=== PATIENT | male | born 1995 | race Caucasian/White ===

== ENCOUNTER 2016-09-04 02:38 | Emergency (ER) | payer SELFPAY ==
[2016-09-04 02:44] VITALS: BP 130/77
[2016-09-04] MEDS ORDERED: OXYCODONE-ACETAMINOPHEN 5-325 MG TABLET PO ONE (03:00)
[2016-09-04] MEDS ORDERED: LIDOCAINE 1% INJ (10 MG/ML) 10 ML MDV INJ ONE (03:06)
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
[2016-09-04] MEDS ORDERED: BACITRACIN ZINC OINTMENT 15 GM TP ONE (03:10)
[2016-09-04] MEDS ORDERED: LIDOCAINE 2% INJ (20 MG/ML) 20 ML MDV INJ ONE (03:11)
[2016-09-04] MEDS ORDERED: LIDOCAINE 1% INJ-PF (10 MG/ML) 30 ML SDV ONE (03:13)
== END 2016-09-04 04:10 | disposition home or self-care (01) ==
LOC: ER 02:38
PROC: 0HQLXZZ Repair Left Lower Leg Skin, External Approach (ICD-10-PCS; principal; 2016-09-04)
DX: S81.812A Laceration without foreign body, left lower leg, initial encounter (principal); R20.0 Anesthesia of skin; F12.90 Cannabis use, unspecified, uncomplicated; F17.200 Nicotine dependence, unspecified, uncomplicated; W26.1XXA Contact with sword or dagger, initial encounter
CPT/HCPCS: 99282; 12004; J3490

== ENCOUNTER 2016-09-08 15:38 | Emergency (ER) | payer SELFPAY ==
[2016-09-08 15:55] VITALS: BP 127/68
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
== END 2016-09-08 16:53 | disposition home or self-care (01) ==
LOC: ER 15:38
DX: S81.812D Laceration without foreign body, left lower leg, subsequent encounter (principal); W45.8XXD Other foreign body or object entering through skin, subsequent encounter; R20.0 Anesthesia of skin; F17.210 Nicotine dependence, cigarettes, uncomplicated; Z71.6 Tobacco abuse counseling
CPT/HCPCS: 99282

== ENCOUNTER 2016-09-16 19:13 | Emergency (ER) | payer SELFPAY ==
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
[2016-09-16 20:47] VITALS: BP 115/69
== END 2016-09-16 20:47 ==
LOC: ER 19:13
DX: S81.812D Laceration without foreign body, left lower leg, subsequent encounter (principal); W45.8XXD Other foreign body or object entering through skin, subsequent encounter; F17.210 Nicotine dependence, cigarettes, uncomplicated

== ENCOUNTER 2018-07-31 08:38 | Emergency (ER) | payer SELFPAY ==
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
[2018-07-31 12:22] VITALS: BP 128/76
== END 2018-07-31 12:20 | disposition home or self-care (01) ==
LOC: ER 08:38
DX: S50.812A Abrasion of left forearm, initial encounter (principal); S40.812A Abrasion of left upper arm, initial encounter; M79.602 Pain in left arm; V28.4XXA Motorcycle driver injured in noncollision transport accident in traffic accident, initial encounter; F17.200 Nicotine dependence, unspecified, uncomplicated; F12.10 Cannabis abuse, uncomplicated
CPT/HCPCS: 99283

== ENCOUNTER 2019-06-08 11:17 | Emergency (ER) | payer SELFPAY ==
[2019-06-08 11:22] VITALS: BP 131/83
[2019-06-08] MEDS ORDERED: IBUPROFEN 800 MG TABLET PO ONE (11:25)
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
[2019-06-08] MEDS ORDERED: HYDROCODONE/ACETAMINOPHEN 5-325 MG TABLET PO ONE (12:34)
== END 2019-06-08 12:44 | disposition home or self-care (01) ==
LOC: ER 11:17
DX: S62.339A Displaced fracture of neck of unspecified metacarpal bone, initial encounter for closed fracture (principal); M79.641 Pain in right hand; M79.644 Pain in right finger(s); W23.0XXA Caught, crushed, jammed, or pinched between moving objects, initial encounter; Y92.009 Unspecified place in unspecified non-institutional (private) residence as the place of occurrence of the external cause; F12.10 Cannabis abuse, uncomplicated; F17.210 Nicotine dependence, cigarettes, uncomplicated; Z71.6 Tobacco abuse counseling
CPT/HCPCS: 99283; 99406

== ENCOUNTER 2019-10-16 14:40 | Emergency (ER) | payer MEDICAID ==
--- NOTE | 2019-10-16 15:16 | ER Document Report ---
ED GI/ - General Chief Complaint: Pain With Urination Stated Complaint: PAINFUL URINATION Time Seen by Provider: 10/16/19 15:09 Primary Care Provider: ANKIT CHAWLA MD [NO LOCAL MD] - Follow up as needed Mode of Arrival: Ambulatory Information source: Patient Notes: 23-year-old male presented to ED for complaint of pain and stinging with urination. He also has a yellow discharge from his penis. He states he does have a history of bronchitis, tonsillectomy with adenoidectomy, and left knee repair for cartilage damage. He states he does smoke a pack a day occasionally drinks and uses marijuana. Patient is alert oriented respirations regular nonlabored speaking in full sentences. He states he has had this pain and burning for about over a week but is not getting better so he came to the emergency room. REVIEW OF SYSTEMS: CONSTITUTIONAL : Denies fever, chills, or sweats. Denies recent illness. CARDIOVASCULAR: Denies chest pain. RESPIRATORY: Denies cough, cold, or chest congestion. Denies shortness of breath, difficulty breathing, or wheezing. GASTROINTESTINAL: Denies abdominal pain. Denies nausea, vomiting, or diarrhea. Denies constipation. GENITOURINARY: Pain and stinging with urination and penile discharge MUSCULOSKELETAL: Denies neck or back pain or joint pain or swelling. ALL OTHER SYSTEMS REVIEWED AND NEGATIVE. PHYSICAL EXAMINATION: GENERAL: Well-appearing, well-nourished and in no acute distress. HEAD: Atraumatic, normocephalic. EYES: Pupils equal round and reactive to light, extraocular movements intact, sclera anicteric, conjunctiva are normal. ENT: Nares patent, oropharynx clear without exudates. Moist mucous membranes. NECK: Normal range of motion, supple without lymphadenopathy LUNGS: Breath sounds clear to auscultation bilaterally and equal. No wheezes rales or rhonchi. HEART: Regular rate and rhythm without murmurs ABDOMEN: Complains of pain and stinging with urination and yellow penile discha rge Musculoskeletal: Normal range of motion, no pitting or edema. No cyanosis. NEUROLOGICAL: Cranial nerves grossly intact. Normal speech, normal gait. Normal sensory, motor exams PSYCH: Normal mood, normal affect. SKIN: Warm, Dry, normal turgor, no rashes or lesions noted. TRAVEL OUTSIDE OF THE [place] IN LAST 30 DAYS: No - HPI Patient complains to provider of: Other Onset: Last week - Penile discharge Timing/Duration: Worse Quality of pain: Burning Severity at maximum: Moderate Severity in ED: Moderate Pain Level: 2 Sexual history: Unprotected intercourse Associated symptoms: Penile discharge, Urinary frequency, Urinary urgency, Other - Burning with urination Exacerbated by: Other - Urination Relieved by: Denies Similar symptoms previously: Yes Recently seen / treated by doctor: No - Related Data Allergies/Adverse Reactions: No Known Allergies Allergy (Verified 06/08/19 11:21) Past Medical History - General Information source: Patient - Social History Smoking Status: Current Every Day Smoker Cigarette use (# per day): Yes - Pack per day Smoking Education Provided: Yes Frequency of alcohol use: Occasional Drug Abuse: Marijuana Family History: Reviewed & Not Pertinent Patient has suicidal ideation: No Patient has homicidal ideation: No - Past Medical History Cardiac Medical History: Reports: None Pulmonary Medical History: Reports: Hx Bronchitis EENT Medical History: Reports: None Neurological Medical History: Reports: None Endocrine Medical History: Reports: None Renal/ Medical History: Reports: None Malignancy Medical History: Reports None GI Medical History: Reports: None Musculoskeletal Medical History: Reports Hx Musculoskeletal Deformity, Reports Hx Musculoskeletal Trauma Skin Medical History: Reports None Traumatic Medical History: Reports: Hx Fractures - Left tib-fib and skull Past Surgical History: Reports: Hx Adenoidectomy, Hx Orthopedic Surgery - L knee, Hx Tonsillectomy - and ADNOIDS - Immunizations Immunizations up to date: Yes Hx Diphtheria, Pertussis, Tetanus Vaccination: Yes - 6 years Physical Exam - Vital signs Vitals: Temp Pulse Resp BP Pulse Ox 99.1 F 78 20 122/75 98 10/16/19 14:50 10/16/19 14:50 10/16/19 14:50 10/16/19 14:50 10/16/19 14:50 Course - Re-evaluation Re-evalutation: 10/17/19 00:11 Patient was treated with Rocephin 1 g IM and 1 g of azithromycin p.o. for his urinary symptoms and his penile discharge. He was also discharged home with a prescription for doxycycline 100 mg twice daily x7 days. He was told to please call the culture line oral for his results for his GC and chlamydia test. He was given the number to call. Patient was instructed not to have any sexual intercourse with anyone until 10 days after he and his partner have been treated if he came back positive and not to have sexual intercourse with anybody until he knew whether the test were positive or negative. - Vital Signs Vital signs: Temp Pulse Resp BP Pulse Ox 97.9 F 67 16 124/75 100 10/16/19 16:53 10/16/19 16:53 10/16/19 16:53 10/16/19 16:53 10/16/19 16:53 - Laboratory Laboratory results interpreted by me: 10/16/19 10/16/19 15:40 15:40 Urine Protein 100 H Urine Blood MODERATE H Ur Leukocyte Esterase SMALL H Chlamydia DNA (PCR) DETECTED H Discharge - Discharge Clinical Impression: Concern about STD in male without diagnosis UTI (urinary tract infection) Qualifiers: Urinary tract infection type: site unspecified Hematuria presence: with hematuria Qualified Code(s): N39.0 - Urinary tract infection, site not specified Condition: Stable Disposition: HOME, SELF-CARE Additional Instructions: URINARY TRACT INFECTION: Your evaluation indicates that you have a urinary tract infection. This is due to germs growing in the bladder. This is a common problem. This infection usually responds quickly to antibiotics. Your antibiotic should be taken exactly as prescribed. Drink plenty of fluids -- three to four quarts a day. Occasionally, a bladder anesthetic will be prescribed to help stop the feeling of urgency until the antibiotic has a chance to clear the infection. This may cause your urine to be dark orange. Certain urine infections require a culture. If the doctor obtained a culture, the results will be back in two days. You should call to see if a change in treatment is needed. A repeat urinalysis after you finish treatment is often recommended. The physician will let you know if further testing is required. Call the doctor if you develop fever, chills, flank pain, inability to urinate, or blood in the urine. Urethritis You have urethritis, an infection of the urethra. The usual symptoms are pain on urination and discharge. The infection is often caused by gonorrhea or chlamydia. Treatment is antibiotics. In addition, any sexual contacts should be evaluated by a physician as soon as possible. As this infection can be transmitted sexually, refrain from sexual activity until the infection is confirmed as healed by your physician. If gonorrhea or chlamydia is found on culture, the health department must be notified. Call the doctor at once if you develop difficulty passing your urine, high fever, rash, joint swelling, or other new symptoms. CEPHALOSPORINS: An antibiotic of the cephalosporin class has been prescribed. This type of antibiotic covers a wide variety of infections, including those of the skin, lungs, middle ear, and urinary tract. This antibiotic is somewhat similar to the penicillin family. In rare cases, a person who is allergic to penicillin will also be allergic to this medication. If you have had a severe allergic reaction to penicillin, and have not taken this antibiotic since that time, notify your doctor. Antibiotics which cover many germs ("broad spectrum" antibiotics) are more likely to cause diarrhea or "yeast" infections. Women prone to vaginal yeast problems may suffer an attack after taking this antibiotic. In infants, oral thrush (white spots "stuck" on the cheek) or yeast diaper rash may result. See your doctor if these problems occur. Call the doctor at once if you develop hives, itching, shortness of breath, or lightheadedness. DOXYCYCLINE: Doxycycline (Vibramycin, Doryx) is an antibiotic of the tetracycline family. This type of drug is useful for infections of the respiratory tract and genital tract, and is sometimes used for intestinal infections. Unlike most tetracyclines, doxycycline can be taken with food. It is longer acting, and (usually) less prone to side effects than regular tetracycline. Tetracycline antibiotics can stain immature teeth and SHOULD NOT BE TAKEN BY CHILDREN, NURSING MOTHERS, OR WOMEN. Tetracyclines can make you more prone to sunburn. Abdominal cramping, nausea, and diarrhea are occasional side effects. Women may experience vaginal yeast infections. Call the doctor at once if you develop hives, itching, shortness of breath, or lightheadedness. AZITHROMYCIN: Azithromycin (Zithromax) is a broad spectrum antibiotic in the same class as erythromycin. It can treat a variety of bacterial infections, but is most frequently used for respiratory infections. Azithromycin is extremely long-lasting. It accumulates in body tissues and continues to kill bacteria for many days. In order to improve absorption, Azithromycin should be taken at least one hour before or two hours after a meal. It does not have the same strong tendency to upset the stomach as erythromycin and is usually very well tolerated. Patients who have had a rash or other true allergic reactions to erythromycin should not take this medication. Call if you develop gastrointestinal distress, severe diarrhea, rash, hives, itching, or shortness of breath. You can call [phone] for the results of your gonorrhea and chlamydia test. They open during the daytime tomorrow. Please no unprotected sex until you have gotten the results of that test and if it is positive it will be 10 days before you can have unprotected sex. FOLLOW-UP CARE: If you have been referred to a physician for follow-up care, call the physicians office for an appointment as you were instructed or within the next two days. If you experience worsening or a significant change in your symptoms, notify the physician immediately or return to the Emergency Department at any time for re-evaluation. Prescriptions: Doxycycline Monohydrate 100 mg PO BID #14 capsule Referrals: ANKIT CHAWLA MD [NO LOCAL MD] - Follow up as needed
[2019-10-16 16:05] LABS: APPEARANCE,URINE SLIGHTLY-CLOUDY; BILIRUBIN,URINE NEGATIVE (NEGATIVE); COLOR,URINE YELLOW; GLUCOSE, URINE NEGATIVE (NEGATIVE); KETONES,URINE NEGATIVE (NEGATIVE); LEUKOCYTE ESTERASE,URINE SMALL (NEGATIVE); NITRITE,URINE NEGATIVE (NEGATIVE); PROTEIN,URINE 100 mg/dL (NEGATIVE); URINE SPECIFIC GRAVITY 1.019; UROBILINOGEN,URINE NEGATIVE mg/dL (<2.0)
[2019-10-16] MEDS ORDERED: AZITHROMYCIN 250 MG TABLET PO ONE (16:09)
[2019-10-16] MEDS ORDERED: CEFTRIAXONE INJ 1000 MG VIAL IM ONE (16:09)
[2019-10-16] MEDS ORDERED: LIDOCAINE 1% INJ-PF (10 MG/ML) 30 ML SDV INJ ONE (16:09)
[2019-10-16 16:54] VITALS: BP 124/75
[2019-10-16 17:36] LABS: CHLAM PCR DETECTED (NOT DETECT)
== END 2019-10-16 16:54 | disposition home or self-care (01) ==
LOC: ER 14:40
DX: N39.0 Urinary tract infection, site not specified (principal); R31.9 Hematuria, unspecified; R36.9 Urethral discharge, unspecified; F17.210 Nicotine dependence, cigarettes, uncomplicated; F12.10 Cannabis abuse, uncomplicated; Z20.2 Contact with and (suspected) exposure to infections with a predominantly sexual mode of transmission
CPT/HCPCS: 99283; 87086; 81001; 87491; 87591; Q0144; J3490; J0696